=== PATIENT | male | born 1960 | race Caucasian/White ===

== ENCOUNTER 2021-11-07 11:24 | Inpatient (IN) | payer OTHER ==
[2021-11-07] MEDS ORDERED: ACETAMINOPHEN 325 MG TABLET (FP) PO PRN ×2 (18:26)
[2021-11-07] MEDS ORDERED: IBUPROFEN 400 MG TABLET (FP) PO PRN (18:26)
[2021-11-07] MEDS ORDERED: cloNIDine HCL 0.1 MG TABLET PO PRN (18:26)
[2021-11-07] MEDS ORDERED: MAGNESIUM HYDROX 2400MG/30ML ORAL SUSPENSION 30 ML CUP PO PRN (18:26)
[2021-11-07] MEDS ORDERED: IBUPROFEN 600 MG TABLET (FP) PO PRN (18:26)
[2021-11-07] MEDS ORDERED: BISMUTH SUBSALICYLATE 524 MG/30 ML PO PRN (18:26)
[2021-11-07] MEDS ORDERED: MAGNESIUM CITRATE 300 ML BOTTLE PO PRN (18:26)
[2021-11-07] MEDS ORDERED: chlordiazePOXIDE HCL 25 MG CAPSULE PO PRN (18:26)
[2021-11-07] MEDS ORDERED: BENZOCAINE/MENTHOL (CHLORASEPTIC ) LOZENGE MM PRN (18:26)
[2021-11-07] MEDS ORDERED: LOPERAMIDE HCL 2 MG CAPSULE PO PRN (18:26)
[2021-11-07] MEDS ORDERED: ONDANSETRON *ODT* 4 MG TABLET SL PRN (18:26)
[2021-11-07] MEDS ORDERED: DICYCLOMINE HCL 10 MG CAPSULE PO PRN (18:26)
[2021-11-07] MEDS ORDERED: MAG HYDROX/AL HYDROX/SIMETH 30 ML UNIT-DOSE CUP PO PRN (18:26)
[2021-11-07] MEDS ORDERED: methaDONE HCL 10 MG TABLET (FOR DETOX USE ONLY) PO ONE (19:00)
[2021-11-07] MEDS: chlordiazePOXIDE HCL 25 MG CAPSULE PO SCH ×2 (20:13→22:20)
[2021-11-07] MEDS: MELATONIN 5 MG TABLETS PO SCH (22:21)
[2021-11-07] MEDS: hydrOXYzine PAMOATE 25 MG CAPSULE (FP) PO SCH (22:21)
[2021-11-07] MEDS: THIAMINE HCL 100 MG TABLET (FP) PO SCH (22:22)
[2021-11-07] MEDS: NICOTINE 14 MG/24 HOURS TOPICAL PATCH TD SCH (22:26)
[2021-11-07] MEDS: PRENATAL VITAMINS W/ FOLIC ACID TABLET (FP) PO SCH (22:26)
[2021-11-07] MEDS: NICOTINE 10 MG CARTRIDGE (INHALER) IH PRN (22:27)
[2021-11-08] MEDS: hydrOXYzine PAMOATE 25 MG CAPSULE (FP) PO SCH ×5 (05:38→22:29)
[2021-11-08] MEDS: chlordiazePOXIDE HCL 25 MG CAPSULE PO SCH ×4 (05:38→22:29)
[2021-11-08] MEDS: METHOCARBAMOL 500 MG TABLET PO PRN (10:12)
[2021-11-08] MEDS: PRENATAL VITAMINS W/ FOLIC ACID TABLET (FP) PO SCH (10:12)
[2021-11-08] MEDS: NICOTINE 14 MG/24 HOURS TOPICAL PATCH TD SCH (10:13)
[2021-11-08 11:05] LABS: HEMATOCRIT 33.5 % (35.4-49); HEMOGLOBIN 11.4 GM/dL (11.7-16.9); MCH 32.8 pg (25.7-33.7); MEAN CELL VOLUME 96.7 fl (80-96); MEAN PLT VOLUME 7.9 fl (7.5-11.1); PLATELET COUNT 182 10^3/uL (134-434); RBC 3.46 M/mm3 (4.00-5.60); RDW 12.7 % (11.9-15.9); WHITE BLOOD COUNT 6.5 K/mm3 (4.0-10.0)
[2021-11-08 11:13] LABS: CALCIUM 8.6 mg/dL (8.5-10.1)
[2021-11-08 11:14] LABS: ALBUMIN 3.5 g/dl (3.4-5.0); BLOOD UREA NITROGEN 18.3 mg/dL (7-18)
[2021-11-08 11:16] LABS: CREATININE 0.7 mg/dL (0.55-1.3)
[2021-11-08 11:17] LABS: BILIRUBIN,TOTAL 0.7 mg/dL (0.2-1); TOT PROT 6.9 g/dl (6.4-8.2)
[2021-11-08] MEDS: THIAMINE HCL 100 MG TABLET (FP) PO SCH (22:29)
[2021-11-08] MEDS: MELATONIN 5 MG TABLETS PO SCH (22:29)
[2021-11-09] MEDS: hydrOXYzine PAMOATE 25 MG CAPSULE (FP) PO SCH ×5 (05:37→22:08)
[2021-11-09] MEDS: chlordiazePOXIDE HCL 25 MG CAPSULE PO SCH ×4 (05:37→22:08)
[2021-11-09] MEDS ORDERED: methaDONE HCL 10 MG TABLET (FOR DETOX USE ONLY) PO ONE (10:00)
[2021-11-09] MEDS: PRENATAL VITAMINS W/ FOLIC ACID TABLET (FP) PO SCH (10:29)
[2021-11-09] MEDS: NICOTINE 14 MG/24 HOURS TOPICAL PATCH TD SCH (10:29)
[2021-11-09] MEDS: METHOCARBAMOL 500 MG TABLET PO PRN (12:20)
[2021-11-09] MEDS: MELATONIN 5 MG TABLETS PO SCH (22:08)
[2021-11-09] MEDS: THIAMINE HCL 100 MG TABLET (FP) PO SCH (22:08)
[2021-11-10] MEDS ORDERED: chlordiazePOXIDE HCL 10 MG CAPSULE PO PRN
[2021-11-10] MEDS: hydrOXYzine PAMOATE 25 MG CAPSULE (FP) PO SCH ×5 (05:28→23:07)
[2021-11-10] MEDS: chlordiazePOXIDE HCL 10 MG CAPSULE PO SCH ×4 (05:28→23:06)
[2021-11-10] MEDS: METHOCARBAMOL 500 MG TABLET PO PRN (10:25)
[2021-11-10] MEDS: PRENATAL VITAMINS W/ FOLIC ACID TABLET (FP) PO SCH (10:25)
[2021-11-10] MEDS: NICOTINE 14 MG/24 HOURS TOPICAL PATCH TD SCH ×2 (10:26→10:29)
[2021-11-10] MEDS: NICOTINE 10 MG CARTRIDGE (INHALER) IH PRN (12:57)
[2021-11-10] MEDS: MELATONIN 5 MG TABLETS PO SCH (23:07)
[2021-11-10] MEDS: THIAMINE HCL 100 MG TABLET (FP) PO SCH (23:07)
[2021-11-11] MEDS: hydrOXYzine PAMOATE 25 MG CAPSULE (FP) PO SCH ×5 (07:11→22:56)
[2021-11-11] MEDS: chlordiazePOXIDE HCL 10 MG CAPSULE PO SCH ×2 (07:12→17:38)
[2021-11-11] MEDS ORDERED: methaDONE HCL 10 MG TABLET (FOR DETOX USE ONLY) PO ONE (10:00)
[2021-11-11] MEDS: NICOTINE 14 MG/24 HOURS TOPICAL PATCH TD SCH (10:52)
[2021-11-11] MEDS: METHOCARBAMOL 500 MG TABLET PO PRN (10:53)
[2021-11-11] MEDS: PRENATAL VITAMINS W/ FOLIC ACID TABLET (FP) PO SCH (10:53)
[2021-11-11] MEDS: THIAMINE HCL 100 MG TABLET (FP) PO SCH (22:56)
[2021-11-11] MEDS: MELATONIN 5 MG TABLETS PO SCH (22:56)
[2021-11-12] MEDS: chlordiazePOXIDE HCL 10 MG CAPSULE PO ONE ×3 (06:07→06:24)
[2021-11-12] MEDS: hydrOXYzine PAMOATE 25 MG CAPSULE (FP) PO SCH ×6 (06:07→22:06)
[2021-11-12] MEDS: NICOTINE 14 MG/24 HOURS TOPICAL PATCH TD SCH (12:53)
[2021-11-12] MEDS: NICOTINE 10 MG CARTRIDGE (INHALER) IH PRN (12:53)
[2021-11-12] MEDS: METHOCARBAMOL 500 MG TABLET PO PRN ×2 (12:53→22:06)
[2021-11-12] MEDS: PRENATAL VITAMINS W/ FOLIC ACID TABLET (FP) PO SCH (12:53)
[2021-11-12 14:15] VITALS: RESP 18
[2021-11-12] MEDS: THIAMINE HCL 100 MG TABLET (FP) PO SCH (22:06)
[2021-11-12] MEDS: MELATONIN 5 MG TABLETS PO SCH (22:07)
[2021-11-13] MEDS: hydrOXYzine PAMOATE 25 MG CAPSULE (FP) PO SCH ×2 (06:44→11:39)
[2021-11-13 09:43] VITALS: BP 130/86; PULSE 96; TEMP 97.1
[2021-11-13] MEDS: PRENATAL VITAMINS W/ FOLIC ACID TABLET (FP) PO SCH (11:39)
[2021-11-13] MEDS: NICOTINE 14 MG/24 HOURS TOPICAL PATCH TD SCH (11:39)
[2021-11-13] MEDS: NICOTINE 10 MG CARTRIDGE (INHALER) IH PRN (11:39)
== END 2021-11-13 14:00 | disposition home or self-care (01) | DRG 773 ==
LOC: YASAS 11:24 → Y6N 18:44
PROVIDERS: ADMIT Allergy & Immunology; ATTEND Surgery
PROC: HZ2ZZZZ Detoxification Services for Substance Abuse Treatment (ICD-10-PCS; principal; 2021-11-07)
DX: F11.23 Opioid dependence with withdrawal (principal); F10.230 Alcohol dependence with withdrawal, uncomplicated; F14.20 Cocaine dependence, uncomplicated; F17.210 Nicotine dependence, cigarettes, uncomplicated; F19.282 Other psychoactive substance dependence with psychoactive substance-induced sleep disorder; F19.24 Other psychoactive substance dependence with psychoactive substance-induced mood disorder; U07.1 COVID-19; Z96.642 Presence of left artificial hip joint; Z99.89 Dependence on other enabling machines and devices; Z59.00 Homelessness unspecified
CPT/HCPCS: 36415; 80053; 85027; 86780; C9803-CS; U0003; U0005

== ENCOUNTER 2022-01-19 13:56 | Inpatient (IN) | payer OTHER ==
[2022-01-19 15:14] VITALS: BMI 19.9
[2022-01-19] MEDS ORDERED: NALOXONE HCL (KLOXXADO) 8 MG SPRAY NS PRN (15:39)
[2022-01-19] MEDS ORDERED: MAGNESIUM HYDROX 2400MG/30ML ORAL SUSPENSION 30 ML CUP PO PRN (15:39)
[2022-01-19] MEDS ORDERED: BENZOCAINE/MENTHOL (CHLORASEPTIC ) LOZENGE MM PRN (15:39)
[2022-01-19] MEDS ORDERED: BISMUTH SUBSALICYLATE 262 MG/15 ML BTL PO PRN (15:39)
[2022-01-19] MEDS ORDERED: IBUPROFEN 400 MG TABLET (FP) PO PRN (15:39)
[2022-01-19] MEDS ORDERED: methaDONE HCL 10 MG TABLET (FOR DETOX USE ONLY) PO ONE (15:39)
[2022-01-19] MEDS ORDERED: ACETAMINOPHEN 325 MG TABLET (FP) PO PRN ×2 (15:39)
[2022-01-19] MEDS ORDERED: MAG HYDROX/AL HYDROX/SIMETH 30 ML UNIT-DOSE CUP PO PRN (15:39)
[2022-01-19] MEDS ORDERED: LOPERAMIDE HCL 2 MG CAPSULE PO PRN (15:39)
[2022-01-19] MEDS ORDERED: ONDANSETRON *ODT* 4 MG TABLET SL PRN (15:39)
[2022-01-19] MEDS ORDERED: cloNIDine HCL 0.1 MG TABLET PO PRN (15:39)
[2022-01-19] MEDS ORDERED: DICYCLOMINE HCL 10 MG CAPSULE PO PRN (15:39)
[2022-01-19] MEDS ORDERED: NICOTINE POLACRILEX 2 MG GUM BUC PRN (15:39)
[2022-01-19] MEDS ORDERED: POLYETHYLENE GLYCOL (HEALTHYLAX) 3350 17 GM PACKET PO PRN (15:39)
[2022-01-19] MEDS ORDERED: methaDONE HCL 10 MG TABLET (FOR DETOX USE ONLY) ONE (16:08)
[2022-01-19] MEDS: diazePAM 5 MG TABLET PO SCH ×2 (17:40→22:03)
[2022-01-19] MEDS: PRENATAL VITAMINS W/ FOLIC ACID TABLET (FP) PO SCH (17:42)
[2022-01-19] MEDS: NICOTINE 10 MG CARTRIDGE (INHALER) IH PRN (17:43)
[2022-01-19] MEDS: THIAMINE HCL 100 MG TABLET (FP) PO SCH (22:03)
[2022-01-19] MEDS: MELATONIN 5 MG TABLETS PO SCH (22:04)
[2022-01-20] MEDS: diazePAM 5 MG TABLET PO SCH ×4 (05:44→22:05)
[2022-01-20] MEDS: PRENATAL VITAMINS W/ FOLIC ACID TABLET (FP) PO SCH (10:02)
[2022-01-20 10:06] LABS: HEMATOCRIT 35.2 % (35.4-49); MCH 33.3 pg (25.7-33.7); MEAN CELL VOLUME 97.8 fl (80-96); MEAN PLT VOLUME 7.9 fl (7.5-11.1); PLATELET COUNT 207 10^3/uL (134-434); RDW 13.1 % (11.9-15.9); WHITE BLOOD COUNT 4.7 K/mm3 (4.0-10.0)
[2022-01-20 10:52] LABS: ALBUMIN 3.8 g/dl (3.4-5.0); CALCIUM 8.9 mg/dL (8.5-10.1)
[2022-01-20 10:55] LABS: CREATININE 0.8 mg/dL (0.55-1.3)
[2022-01-20 10:57] LABS: BILIRUBIN,TOTAL 0.6 mg/dL (0.2-1); TOT PROT 7.2 g/dl (6.4-8.2)
[2022-01-20] MEDS: diazePAM 5 MG TABLET PO PRN (12:52)
[2022-01-20] MEDS: METHOCARBAMOL 500 MG TABLET PO PRN (17:14)
[2022-01-20] MEDS: MELATONIN 5 MG TABLETS PO SCH (22:04)
[2022-01-20] MEDS: THIAMINE HCL 100 MG TABLET (FP) PO SCH (22:04)
[2022-01-21] MEDS: diazePAM 5 MG TABLET PO SCH ×3 (05:15→22:02)
[2022-01-21] MEDS ORDERED: methaDONE HCL 10 MG TABLET (FOR DETOX USE ONLY) PO ONE (10:00)
[2022-01-21] MEDS: diazePAM 5 MG TABLET PO PRN ×2 (10:04→17:13)
[2022-01-21] MEDS: PRENATAL VITAMINS W/ FOLIC ACID TABLET (FP) PO SCH (10:04)
[2022-01-21] MEDS: METHOCARBAMOL 500 MG TABLET PO PRN ×2 (10:05→22:02)
[2022-01-21] MEDS: NICOTINE 10 MG CARTRIDGE (INHALER) IH PRN (13:09)
[2022-01-21] MEDS: NICOTINE 14 MG/24 HOURS TOPICAL PATCH TD SCH (14:12)
[2022-01-21] MEDS: THIAMINE HCL 100 MG TABLET (FP) PO SCH (22:03)
[2022-01-21] MEDS: MELATONIN 5 MG TABLETS PO SCH (22:04)
[2022-01-22] MEDS: diazePAM 5 MG TABLET PO SCH ×2 (05:58→17:03)
[2022-01-22] MEDS: PRENATAL VITAMINS W/ FOLIC ACID TABLET (FP) PO SCH (10:19)
[2022-01-22] MEDS: diazePAM 5 MG TABLET PO PRN ×2 (10:19→21:17)
[2022-01-22] MEDS: METHOCARBAMOL 500 MG TABLET PO PRN ×2 (10:19→21:15)
[2022-01-22] MEDS: NICOTINE 14 MG/24 HOURS TOPICAL PATCH TD SCH (10:20)
[2022-01-22] MEDS: NICOTINE 10 MG CARTRIDGE (INHALER) IH PRN (12:48)
[2022-01-22] MEDS: MELATONIN 5 MG TABLETS PO SCH (21:14)
[2022-01-22] MEDS: THIAMINE HCL 100 MG TABLET (FP) PO SCH (21:15)
[2022-01-23] MEDS ORDERED: diazePAM 5 MG TABLET PO ONE (06:00)
[2022-01-23] MEDS: NICOTINE 10 MG CARTRIDGE (INHALER) IH PRN (07:54)
[2022-01-23] MEDS ORDERED: methaDONE HCL 10 MG TABLET (FOR DETOX USE ONLY) PO ONE (10:00)
[2022-01-23] MEDS: PRENATAL VITAMINS W/ FOLIC ACID TABLET (FP) PO SCH (10:03)
[2022-01-23] MEDS: NICOTINE 14 MG/24 HOURS TOPICAL PATCH TD SCH (10:03)
[2022-01-23] MEDS: METHOCARBAMOL 500 MG TABLET PO PRN (13:07)
[2022-01-23] MEDS: MELATONIN 5 MG TABLETS PO SCH (22:18)
[2022-01-23] MEDS: THIAMINE HCL 100 MG TABLET (FP) PO SCH (22:18)
[2022-01-23] MEDS: IBUPROFEN 600 MG TABLET (FP) PO PRN (22:19)
[2022-01-24] MEDS: IBUPROFEN 600 MG TABLET (FP) PO PRN (05:36)
[2022-01-24 10:13] VITALS: BP 106/60; PULSE 66; RESP 16; TEMP 96.9
[2022-01-24] MEDS: PRENATAL VITAMINS W/ FOLIC ACID TABLET (FP) PO SCH (10:32)
[2022-01-24] MEDS: NICOTINE 14 MG/24 HOURS TOPICAL PATCH TD SCH (10:32)
== END 2022-01-24 12:14 | disposition other institution (70) | DRG 773 ==
LOC: YASAS 13:56 → Y6N 16:24
PROVIDERS: ADMIT Allergy & Immunology; ATTEND Surgery
PROC: HZ2ZZZZ Detoxification Services for Substance Abuse Treatment (ICD-10-PCS; principal; 2022-01-19)
DX: F11.23 Opioid dependence with withdrawal (principal); F10.230 Alcohol dependence with withdrawal, uncomplicated; F14.20 Cocaine dependence, uncomplicated; F17.210 Nicotine dependence, cigarettes, uncomplicated; F41.9 Anxiety disorder, unspecified; F32.A Depression, unspecified; G81.91 Hemiplegia, unspecified affecting right dominant side; D64.9 Anemia, unspecified; Z86.16 Personal history of COVID-19; Z99.89 Dependence on other enabling machines and devices
CPT/HCPCS: 36415; 80053; 85027; 86780; 87811; C9803-CS; U0003; U0005